=== PATIENT | female | born 1945 | race African-American/Black ===

== ENCOUNTER 2016-12-13 01:53 | Emergency (ER) | payer MEDICARE, MEDICAID ==
[~2016-12-13] VITALS: Ht 157.5 cm; Wt 110.0 kg
[~2016-12-13 01:53] MED LIST: ACET1TAB14 PO; BENA40TA66 PO; BUDE6HFA IH; CYM20 PO; DILT300C35 PO; OMEP20TA80 PO; SIMV20TA6 PO
[2016-12-13] MEDS ORDERED: KETOROLAC 30MG/ML VIAL IV STA (03:39)
[2016-12-13] MEDS ORDERED: SODIUM CHLORIDE 0.9% 1,000 ML IV ONE (03:39)
[2016-12-13 04:02] LABS: BASOPHILS % 1.7 % (0.0-2.0); EOSINOPHILS % 4.7 % (0.0-5.0); HEMATOCRIT. 31.5 % (36.0-48.0); HEMOGLOBIN. 10.2 g/dL (12.0-16.0); LYMPHOCYTES % 22.7 % (20.0-50.0); MEAN CORPUSCULAR HEMOGLOBIN 28.5 pg (28.0-32.0); MEAN CORPUSCULAR HGB CONC 32.3 g/dL (31.0-37.0); MEAN PLATELET VOLUME 7.6 fl (7.4-10.4); MONOCYTES % 7.9 % (2.0-8.0); PLATELET 303 x1000/uL (130-400); RED BLOOD CELL COUNT 3.58 mill/uL (4.2-5.4); RED CELL DISTRIBUTION WIDTH 16.7 % (11.6-14.6); WHITE BLOOD COUNT 6.2 x1000/uL (4.5-11.0)
[2016-12-13 04:10] LABS: INR 1.1; PARTIAL THROMBOPLASTIN TIME 27.6 sec (24.0-34.0); PROTHROMBIN TIME 11.1 sec
[2016-12-13 04:18] LABS: ALANINE AMINOTRANSFERASE 8 IU/L (13-61); ALBUMIN 3.3 g/dL (3.4-5.0); ANION GAP 12; CARBON DIOXIDE 24 mEq/L (21-32); CHLORIDE 110 mEq/L (98-107); INDEX HEMOLYSI 1 (1-3); INDEX ICTERIC 1 (1-4); INDEX LIPEMIC 1 (1-3); NT PRO B-TYPE NATRIURETIC PEP 1590 pg/mL (5-125); TROPONIN I < 0.02 ng/mL (0.00-0.04); UREA NITROGEN BLOOD 14 mg/dL (7-21); eGFR 49 mL/min (>60)
[2016-12-13 06:49] VITALS: BP 117/72
== END 2016-12-13 07:07 | disposition home or self-care (01) ==
LOC: ER 02:48
DX: J44.1 Chronic obstructive pulmonary disease with (acute) exacerbation (principal); Z99.81 Dependence on supplemental oxygen; I11.9 Hypertensive heart disease without heart failure; I50.9 Heart failure, unspecified; M75.101 Unspecified rotator cuff tear or rupture of right shoulder, not specified as traumatic; M79.605 Pain in left leg; M79.604 Pain in right leg; G89.29 Other chronic pain
CPT/HCPCS: 36415; 71010; 73030; 80053; 83880; 84484; 85025; 85610; 85730; 93005; 93970; 96374; 99285; J1885; J7030

== ENCOUNTER 2016-12-19 07:51 | Inpatient (IN) | payer MEDICARE, MEDICAID ==
[~2016-12-19] VITALS: Ht 157.5 cm; Wt 90.7 kg
[2016-12-19] MEDS ORDERED: ASPIRIN 81MG TABLET PO STA (10:37)
[2016-12-19] MEDS ORDERED: MORPHINE SULFATE 4 MG/ML CPJ (NOT FOR IM USE) IV STA (10:37)
[2016-12-19] MEDS ORDERED: ONDANSETRON HCL 4MG/2ML VIAL IV STA (10:37)
[2016-12-19 11:10] LABS: BASOPHILS % 2.2 % (0.0-2.0); EOSINOPHILS % 5.9 % (0.0-5.0); HEMATOCRIT. 34.3 % (36.0-48.0); HEMOGLOBIN. 11.1 g/dL (12.0-16.0); LYMPHOCYTES % 31.6 % (20.0-50.0); MEAN CORPUSCULAR HEMOGLOBIN 29.1 pg (28.0-32.0); MEAN CORPUSCULAR HGB CONC 32.4 g/dL (31.0-37.0); MEAN CORPUSCULAR VOLUME 89.8 fL (81.0-99.0); MEAN PLATELET VOLUME 7.8 fl (7.4-10.4); MONOCYTES % 7.8 % (2.0-8.0); NEUTROPHILS % 52.5 % (40.0-76.0); PLATELET 272 x1000/uL (130-400); RED BLOOD CELL COUNT 3.82 mill/uL (4.2-5.4); RED CELL DISTRIBUTION WIDTH 17.9 % (11.6-14.6); WHITE BLOOD COUNT 4.7 x1000/uL (4.5-11.0)
[2016-12-19 11:20] LABS: INR 1.1; PARTIAL THROMBOPLASTIN TIME 24.7 sec (24.0-34.0)
[2016-12-19 11:29] LABS: ALANINE AMINOTRANSFERASE 11 IU/L (13-61); ALBUMIN 3.3 g/dL (3.4-5.0); ANION GAP 12; CALCIUM 8.7 mg/dL (8.5-10.1); CARBON DIOXIDE 23 mEq/L (21-32); CHLORIDE 110 mEq/L (98-107); INDEX HEMOLYSI 1 (1-3); INDEX ICTERIC 1 (1-4); INDEX LIPEMIC 1 (1-3); NT PRO B-TYPE NATRIURETIC PEP 1276 pg/mL (5-125); TROPONIN I < 0.02 ng/mL (0.00-0.04); UREA NITROGEN BLOOD 21 mg/dL (7-21); eGFR 41 mL/min (>60)
[2016-12-19 17:10] VITALS: BP 102/56
[2016-12-19 17:17] VITALS: BP 102/56
[2016-12-19] MEDS ORDERED: DOCUSATE SODIUM 100MG CAPSULE PO PRN (18:00)
[2016-12-19] MEDS ORDERED: IPRATROPIUM/ALBUTEROL 0.5-3(2.5)MG/3ML NEB INH PRN (18:00)
[2016-12-19] MEDS ORDERED: GUAIFENESIN 200MG/10ML SUGAR FREE UDC PO PRN (18:00)
[2016-12-19] MEDS ORDERED: ACETAMINOPHEN 650MG/20.3ML UDC GT PRN (18:00)
[2016-12-19] MEDS ORDERED: ONDANSETRON HCL 4MG/2ML VIAL IV PRN (18:00)
[2016-12-19] MEDS ORDERED: DIPHENHYDRAMINE 50MG/ML VIAL IV PRN (18:00)
[2016-12-19] MEDS ORDERED: ACETAMINOPHEN 650MG SUPP PR PRN (18:00)
[2016-12-19] MEDS ORDERED: HYDROCODONE/ACETAMINOPHEN 5/325MG TABLET PO PRN (18:00)
[2016-12-19] MEDS ORDERED: MAGNESIUM/ALUMINUM HYDROXIDE/SIMETHICONE 30ML UDC PO PRN (18:00)
[2016-12-19] MEDS ORDERED: NA PHOS,M-B/NA PHOS,DI-BA ENEMA 118ML PR PRN (18:00)
[2016-12-19] MEDS ORDERED: CLONIDINE 0.1MG TABLET PO PRN (18:00)
[2016-12-19 20:00] VITALS: BP 116/52
[2016-12-19] MEDS ORDERED: ENOXAPARIN 40MG/0.4ML SYR SUBCUT SCH (20:00)
[2016-12-19] MEDS: SODIUM CHLORIDE 0.9% INJ 3ML FLUSH IVF SCH (20:12)
[2016-12-20] VITALS: BP 111/65
[2016-12-20 00:17] LABS: CREATINE KINASE 71 IU/L (26-192); INDEX HEMOLYSI 1 (1-3); TROPONIN I < 0.02 ng/mL (0.00-0.04)
[2016-12-20] MEDS ORDERED: ACETAMINOPHEN WITH CODEINE 300/30MG TABLET PO PRN (00:30)
[2016-12-20 04:00] VITALS: BP 124/74
[2016-12-20] MEDS: SODIUM CHLORIDE 0.9% INJ 3ML FLUSH IVF SCH (05:32)
[2016-12-20 05:39] LABS: BASOPHILS % 2.2 % (0.0-2.0); EOSINOPHILS % 7.6 % (0.0-5.0); HEMATOCRIT. 30.3 % (36.0-48.0); HEMOGLOBIN. 9.9 g/dL (12.0-16.0); LYMPHOCYTES % 45.9 % (20.0-50.0); MEAN CORPUSCULAR HGB CONC 32.6 g/dL (31.0-37.0); MONOCYTES % 11.3 % (2.0-8.0); PLATELET 261 x1000/uL (130-400); RED BLOOD CELL COUNT 3.41 mill/uL (4.2-5.4); WHITE BLOOD COUNT 4.4 x1000/uL (4.5-11.0)
[2016-12-20 06:12] LABS: ALANINE AMINOTRANSFERASE 13 IU/L (13-61); ALBUMIN 3.1 g/dL (3.4-5.0); ANION GAP 12; CALCIUM 8.7 mg/dL (8.5-10.1); CARBON DIOXIDE 25 mEq/L (21-32); CHLORIDE 110 mEq/L (98-107); CREATINE KINASE 66 IU/L (26-192); HDL CHOLESTEROL 58 mg/dL (40-59); INDEX HEMOLYSI 1 (1-3); INDEX ICTERIC 1 (1-4); INDEX LIPEMIC 1 (1-3); LDL CHOLESTEROL 66 mg/dL (5-100); TRIGLYCERIDE 82 mg/dL (0-150); TROPONIN I < 0.02 ng/mL (0.00-0.04); UREA NITROGEN BLOOD 21 mg/dL (7-21); eGFR 45 mL/min (>60)
== END 2016-12-20 08:35 | disposition left against medical advice (07) | DRG 392 ==
LOC: ER 09:15 → 7WST 14:58
PROVIDERS: ADMIT Family Medicine; ATTEND Family Medicine
DX: K21.9 Gastro-esophageal reflux disease without esophagitis (principal); I25.10 Atherosclerotic heart disease of native coronary artery without angina pectoris; R07.9 Chest pain, unspecified; I51.7 Cardiomegaly; I11.9 Hypertensive heart disease without heart failure; J44.9 Chronic obstructive pulmonary disease, unspecified; E78.5 Hyperlipidemia, unspecified; I48.91 Unspecified atrial fibrillation; Z96.652 Presence of left artificial knee joint; Z53.21 Procedure and treatment not carried out due to patient leaving prior to being seen by health care provider; I25.2 Old myocardial infarction; Z79.899 Other long term (current) drug therapy
CPT/HCPCS: 36415; 71010; 73502; 73560; 80053; 80061; 82550; 83036; 83880; 84484; 85025; 85610; 85730; 93005; 96374; 96375; 99285; J1200; J1650; J2270; J2405

== ENCOUNTER 2016-12-28 19:36 | Emergency (ER) | payer MEDICARE, MEDICAID ==
[~2016-12-28] VITALS: Ht 160 cm; Wt 100.0 kg
[2016-12-29] MEDS ORDERED: KETOROLAC 60MG/2ML VIAL IM ONE
[2016-12-29 00:33] LABS: HEMATOCRIT. 36.9 % (36.0-48.0); HEMOGLOBIN. 11.9 g/dL (12.0-16.0); LYMPHOCYTES % 32.3 % (20.0-50.0); MEAN CORPUSCULAR HGB CONC 32.3 g/dL (31.0-37.0); MEAN CORPUSCULAR VOLUME 89.8 fL (81.0-99.0); MONOCYTES % 7.6 % (2.0-8.0); NEUTROPHILS % 49.1 % (40.0-76.0); PLATELET 253 x1000/uL (130-400); RED BLOOD CELL COUNT 4.11 mill/uL (4.2-5.4); RED CELL DISTRIBUTION WIDTH 17.9 % (11.6-14.6); WHITE BLOOD COUNT 6.3 x1000/uL (4.5-11.0)
[2016-12-29 00:36] LABS: CHLORIDE 100 mEq/L (98-107); INDEX HEMOLYSI 1 (1-3); INDEX ICTERIC 1 (1-4); INDEX LIPEMIC 1 (1-3)
[2016-12-29 00:40] VITALS: BP 135/78
[2016-12-29 00:45] LABS: ALANINE AMINOTRANSFERASE 14 IU/L (13-61); ALBUMIN 3.8 g/dL (3.4-5.0); ANION GAP 15; CALCIUM 9.3 mg/dL (8.5-10.1); CARBON DIOXIDE 26 mEq/L (21-32); CREATINE KINASE 70 IU/L (26-192); UREA NITROGEN BLOOD 22 mg/dL (7-21); eGFR 45 mL/min (>60)
== END 2016-12-29 00:42 | disposition left against medical advice (07) ==
LOC: ER 19:36
DX: M79.605 Pain in left leg (principal); M79.604 Pain in right leg; I11.9 Hypertensive heart disease without heart failure; I48.91 Unspecified atrial fibrillation; J44.9 Chronic obstructive pulmonary disease, unspecified; E78.00 Pure hypercholesterolemia, unspecified; I25.2 Old myocardial infarction; Z79.1 Long term (current) use of non-steroidal anti-inflammatories (NSAID); Z79.899 Other long term (current) drug therapy; Z96.659 Presence of unspecified artificial knee joint
CPT/HCPCS: 36415; 80053; 82550; 85025; 96372; 99284; J1885

== ENCOUNTER 2017-02-05 17:57 | Emergency (ER) | payer MEDICARE, MEDICAID ==
[~2017-02-05] VITALS: Ht 152.4 cm; Wt 106.0 kg
[2017-02-05 19:50] VITALS: BP 103/80
[2017-02-05] MEDS ORDERED: ONDANSETRON HCL 4MG/2ML VIAL IV STA (20:07)
[2017-02-05] MEDS ORDERED: MORPHINE SULFATE 4 MG/ML CPJ (NOT FOR IM USE) IV STA (20:07)
[2017-02-05 20:26] LABS: BASOPHILS % 2.5 % (0.0-2.0); HEMOGLOBIN. 10.8 g/dL (12.0-16.0); LYMPHOCYTES % 34.8 % (20.0-50.0); MEAN CORPUSCULAR HEMOGLOBIN 29.2 pg (28.0-32.0); MEAN CORPUSCULAR HGB CONC 32.7 g/dL (31.0-37.0); MEAN CORPUSCULAR VOLUME 89.4 fL (81.0-99.0); MEAN PLATELET VOLUME 8.1 fl (7.4-10.4); MONOCYTES % 9.1 % (2.0-8.0); NEUTROPHILS % 52.6 % (40.0-76.0); PLATELET 267 x1000/uL (130-400); RED BLOOD CELL COUNT 3.69 mill/uL (4.2-5.4); RED CELL DISTRIBUTION WIDTH 16.6 % (11.6-14.6)
[2017-02-05 20:30] LABS: CHLORIDE 109 mEq/L (98-107)
[2017-02-05 20:35] LABS: ANION GAP 13; CALCIUM 9.3 mg/dL (8.5-10.1); CARBON DIOXIDE 25 mEq/L (21-32); INDEX HEMOLYSI 1 (1-3); INDEX ICTERIC 1 (1-4); INDEX LIPEMIC 1 (1-3); UREA NITROGEN BLOOD 20 mg/dL (7-21)
[2017-02-05 20:37] LABS: INR 1.1; PARTIAL THROMBOPLASTIN TIME 26.1 sec (24.0-34.0); eGFR > 60 mL/min (>60)
[2017-02-05] MEDS ORDERED: HYDROCODONE/ACETAMINOPHEN 5/325MG TABLET PO ONE (21:00)
== END 2017-02-05 21:00 | disposition left against medical advice (07) ==
LOC: ER 17:59
DX: M25.552 Pain in left hip (principal); J44.9 Chronic obstructive pulmonary disease, unspecified; E78.00 Pure hypercholesterolemia, unspecified; I10 Essential (primary) hypertension; I25.2 Old myocardial infarction; I25.10 Atherosclerotic heart disease of native coronary artery without angina pectoris; Z79.899 Other long term (current) drug therapy
CPT/HCPCS: 36415; 80048; 85025; 85610; 85730; 86850; 86900; 99284

== ENCOUNTER 2017-02-06 12:51 | Emergency (ER) | payer MEDICARE, MEDICAID ==
[~2017-02-06] VITALS: Ht 165.1 cm; Wt 130.0 kg
[2017-02-06] MEDS ORDERED: HYDROCODONE/ACETAMINOPHEN 10/325MG TABLET PO ONE (15:30)
[2017-02-06 16:05] VITALS: BP 111/84
== END 2017-02-06 16:05 | disposition home or self-care (01) ==
LOC: ER 13:08
DX: S73.109A Unspecified sprain of unspecified hip, initial encounter (principal); I10 Essential (primary) hypertension; Z87.891 Personal history of nicotine dependence; Z96.653 Presence of artificial knee joint, bilateral; W11.XXXA Fall on and from ladder, initial encounter; Y93.89 Activity, other specified; Y92.018 Other place in single-family (private) house as the place of occurrence of the external cause
CPT/HCPCS: 99283

== ENCOUNTER 2017-04-14 05:32 | Emergency (ER) | payer MEDICARE, MEDICAID ==
[~2017-04-14] VITALS: Ht 154.9 cm; Wt 106.0 kg
[~2017-04-14 05:32] MED LIST changes: +LORA0.5T2 PO
[2017-04-14] MEDS ORDERED: KETOROLAC 30MG/ML VIAL IV ONE (08:00)
[2017-04-14 11:19] VITALS: BP 153/90
== END 2017-04-14 11:24 | disposition home or self-care (01) ==
LOC: ER 08:14
DX: S83.92XA Sprain of unspecified site of left knee, initial encounter (principal); R07.9 Chest pain, unspecified; J45.909 Unspecified asthma, uncomplicated; I50.9 Heart failure, unspecified; I11.0 Hypertensive heart disease with heart failure; Z96.653 Presence of artificial knee joint, bilateral; X50.0XXA Overexertion from strenuous movement or load, initial encounter; Y93.89 Activity, other specified; Y92.89 Other specified places as the place of occurrence of the external cause; Y99.8 Other external cause status
CPT/HCPCS: 36415; 73562; 84484; 93005; 96372; 99285; J1885

== ENCOUNTER 2017-05-04 05:58 | Emergency (ER) | payer MEDICARE, MEDICAID ==
[~2017-05-04] VITALS: Ht 157.5 cm; Wt 104.0 kg
[2017-05-04] MEDS ORDERED: TRAMADOL 50MG TABLET PO ONE (07:00)
[2017-05-04] MEDS ORDERED: KETOROLAC 60MG/2ML VIAL IM ONE (07:45)
[2017-05-04 08:08] VITALS: BP 163/76
== END 2017-05-04 08:25 | disposition home or self-care (01) ==
LOC: ER 05:58
DX: G89.29 Other chronic pain (principal); M25.562 Pain in left knee; J44.9 Chronic obstructive pulmonary disease, unspecified; I11.0 Hypertensive heart disease with heart failure; I50.9 Heart failure, unspecified; Z86.73 Personal history of transient ischemic attack (TIA), and cerebral infarction without residual deficits; Z96.653 Presence of artificial knee joint, bilateral
CPT/HCPCS: 73562; 96372; 99284; J1885

== ENCOUNTER 2017-05-11 13:25 | Emergency (ER) | payer MEDICARE, MEDICAID ==
[~2017-05-11] VITALS: Ht 157.5 cm; Wt 109.0 kg
[2017-05-11] MEDS ORDERED: KETOROLAC 30MG/ML VIAL IV STA (14:56)
[2017-05-11] MEDS ORDERED: ONDANSETRON HCL 4MG/2ML VIAL IV STA (14:56)
[2017-05-11] MEDS ORDERED: SODIUM CHLORIDE 0.9% 1,000 ML IV ONE (14:56)
[2017-05-11 15:16] LABS: CLARITY URINE CLEAR (CLEAR); COLOR URINE YELLOW (YELLOW); GLUCOSE URINE NEGATIVE (NEGATIVE); KETONES URINE NEGATIVE (NEGATIVE); LEUKOCYTE ESTERASE URINE NEGATIVE (NEGATIVE); NITRITE URINE NEGATIVE (NEGATIVE); OCCULT BLOOD URINE NEGATIVE (NEGATIVE); PROTEIN URINE TRACE (NEGATIVE); SPECIFIC GRAVITY URINE 1.019 (1.005-1.030); UROBILINOGEN URINE 0.2 E.U./dL (0.2-1.0)
[2017-05-11 15:30] VITALS: BP 149/71
[2017-05-11 15:36] LABS: EOSINOPHILS % 2.6 % (0.0-5.0); HEMATOCRIT. 31.8 % (36.0-48.0); HEMOGLOBIN. 10.5 g/dL (12.0-16.0); MEAN CORPUSCULAR HEMOGLOBIN 29.6 pg (28.0-32.0); MEAN CORPUSCULAR VOLUME 89.5 fL (81.0-99.0); MEAN PLATELET VOLUME 7.8 fl (7.4-10.4); MONOCYTES % 7.1 % (2.0-8.0); NEUTROPHILS % 55.3 % (40.0-76.0); PLATELET 279 x1000/uL (130-400); RED BLOOD CELL COUNT 3.55 mill/uL (4.2-5.4); RED CELL DISTRIBUTION WIDTH 18.7 % (11.6-14.6)
[2017-05-11 15:39] LABS: PROTHROMBIN TIME 10.6 sec
[2017-05-11 15:45] LABS: CARBON DIOXIDE 20 mEq/L (21-32); CHLORIDE 115 mEq/L (98-107)
== END 2017-05-11 16:38 | disposition home or self-care (01) ==
LOC: ER 13:25
DX: R11.2 Nausea with vomiting, unspecified (principal); R42 Dizziness and giddiness; I10 Essential (primary) hypertension; J44.9 Chronic obstructive pulmonary disease, unspecified; Z86.73 Personal history of transient ischemic attack (TIA), and cerebral infarction without residual deficits; Z96.659 Presence of unspecified artificial knee joint
CPT/HCPCS: 36415; 80053; 81001; 83690; 85025; 85610; 93005; 96361; 96374; 96375; 99285; J1885; J2405; J7030

== ENCOUNTER 2017-05-19 19:57 | Inpatient (IN) | payer MEDICARE, MEDICAID ==
[~2017-05-19] VITALS: Ht 157.5 cm; Wt 106.6 kg
[~2017-05-19 19:57] MED LIST changes: +OMEP20TA2 PO; -OMEP20TA80 PO
[2017-05-19] MEDS ORDERED: TRAMADOL 50MG TABLET PO ONE (23:00)
[2017-05-19 23:18] LABS: HEMATOCRIT. 31.6 % (36.0-48.0); HEMOGLOBIN. 10.4 g/dL (12.0-16.0); MEAN CORPUSCULAR HEMOGLOBIN 30.1 pg (28.0-32.0); MEAN CORPUSCULAR VOLUME 91.2 fL (81.0-99.0); PLATELET 273 x1000/uL (130-400); RED BLOOD CELL COUNT 3.46 mill/uL (4.2-5.4); RED CELL DISTRIBUTION WIDTH 18.8 % (11.6-14.6)
[2017-05-19 23:24] LABS: PARTIAL THROMBOPLASTIN TIME 24.5 sec (23.4-31.0); PROTHROMBIN TIME 10.4 sec (9.4-11.6)
[2017-05-19 23:34] LABS: PLATELET ESTIMATE NORMAL
[2017-05-20] MEDS ORDERED: ONDANSETRON 4MG ODT PO ONE (00:45)
[2017-05-20] MEDS ORDERED: HYDROCODONE/ACETAMINOPHEN 5/325MG TABLET PO ONE (00:45)
[2017-05-20] MEDS ORDERED: SODIUM CHLORIDE 0.9% 500 ML IV ONE (01:24)
[2017-05-20] MEDS ORDERED: GUAIFENESIN 200MG/10ML SUGAR FREE UDC PO PRN (04:00)
[2017-05-20] MEDS ORDERED: MAGNESIUM/ALUMINUM HYDROXIDE/SIMETHICONE 30ML UDC PO PRN (04:00)
[2017-05-20] MEDS ORDERED: ACETAMINOPHEN 325MG TABLET PO PRN (04:16)
[2017-05-20] MEDS ORDERED: CLONIDINE 0.1MG TABLET PO PRN (04:17)
[2017-05-20] MEDS ORDERED: IPRATROPIUM/ALBUTEROL 0.5-3(2.5)MG/3ML NEB INH PRN (04:22)
[2017-05-20] MEDS ORDERED: AMPICILLIN SOD/SULBACTAM NA 1.5 G in SODIUM CHLORIDE 0.9% 50 ML IV SCH ×2 (05:00→12:00)
[2017-05-20] MEDS: DIPHENHYDRAMINE 50MG/ML VIAL IV PRN ×2 (07:32→23:20)
[2017-05-20] MEDS: DULOXETINE HCL 20MG DR CAPSULE PO SCH (11:05)
[2017-05-20] MEDS: SODIUM CHLORIDE 0.9% INJ 3ML FLUSH IVF SCH ×2 (11:05→21:49)
[2017-05-20] MEDS: DILTIAZEM HCL 300MG CAPSULE SR 24HR PO SCH (11:06)
[2017-05-20] MEDS: HYDROCODONE/ACETAMINOPHEN 5/325MG TABLET PO PRN ×3 (13:43→21:49)
[2017-05-20] MEDS: AMPICILLIN SOD/SULBACTAM NA 3 G in SODIUM CHLORIDE 0.9% 100 ML IV SCH ×2 (17:34→23:28)
[2017-05-20] MEDS ORDERED: VANCOMYCIN 1250MG in DEXTROSE 5% WATER 250ML IV SCH (20:00)
[2017-05-21] MEDS: HYDROCODONE/ACETAMINOPHEN 5/325MG TABLET PO PRN ×2 (03:19→09:47)
[2017-05-21] MEDS: AMPICILLIN SOD/SULBACTAM NA 3 G in SODIUM CHLORIDE 0.9% 100 ML IV SCH ×2 (05:50→11:30)
[2017-05-21] MEDS: SODIUM CHLORIDE 0.9% INJ 3ML FLUSH IVF SCH ×2 (05:51→13:19)
[2017-05-21 08:16] LABS: C REACTIVE PROTEIN QUANT 0.9 mg/L (0.0-3.0)
[2017-05-21] MEDS ORDERED: VANCOMYCIN 500 MG PREMIX 100 ML IV SCH (09:00)
[2017-05-21] MEDS: DILTIAZEM HCL 300MG CAPSULE SR 24HR PO SCH (09:37)
[2017-05-21] MEDS: DULOXETINE HCL 20MG DR CAPSULE PO SCH (09:37)
[2017-05-21] MEDS ORDERED: MAGNESIUM HYDROXIDE 400MG/5ML 30ML UDC PO NR (11:00)
[2017-05-21 12:27] VITALS: BP 122/60
== END 2017-05-21 13:45 | disposition home or self-care (01) | DRG 155 ==
LOC: ER 22:01 → 6EST 05-20 01:10 → EDBEDREQ 05-20 01:14 → ENRESERV 05-20 07:04 → 6EST 05-20 08:20
PROVIDERS: ADMIT Internal Medicine; ATTEND Internal Medicine
DX: K11.20 Sialoadenitis, unspecified (principal); Z68.41 Body mass index [BMI] 40.0-44.9, adult; E44.0 Moderate protein-calorie malnutrition; I11.0 Hypertensive heart disease with heart failure; I50.9 Heart failure, unspecified; E78.5 Hyperlipidemia, unspecified; E78.00 Pure hypercholesterolemia, unspecified; Z96.653 Presence of artificial knee joint, bilateral; E66.9 Obesity, unspecified; Z86.73 Personal history of transient ischemic attack (TIA), and cerebral infarction without residual deficits; Z79.899 Other long term (current) drug therapy; Z90.49 Acquired absence of other specified parts of digestive tract
CPT/HCPCS: 36415; 70540; 76536; 80048; 80076; 85007; 85027; 85610; 85651; 85730; 86140; 96365; 96375; 99285; J0295; J1200; J3370; J7040; J7050; J7060; Q0162

== ENCOUNTER 2017-07-28 13:19 | Emergency (ER) | payer MEDICARE, MEDICAID ==
[~2017-07-28] VITALS: Ht 157.5 cm; Wt 118.0 kg
[2017-07-28 15:28] VITALS: BP 158/77
[2017-07-28] MEDS ORDERED: ACETAMINOPHEN 500MG TABLET PO ONE (16:45)
== END 2017-07-28 17:27 | disposition home or self-care (01) ==
LOC: ER 14:45
DX: M19.90 Unspecified osteoarthritis, unspecified site (principal); M85.60 Other cyst of bone, unspecified site; M79.601 Pain in right arm; R20.0 Anesthesia of skin; I10 Essential (primary) hypertension; Z96.659 Presence of unspecified artificial knee joint
CPT/HCPCS: 73130; 99284

== ENCOUNTER 2017-07-29 22:43 | Emergency (ER) | payer MEDICARE, MEDICAID ==
[~2017-07-29] VITALS: Ht 157.5 cm; Wt 109.0 kg
[2017-07-30] MEDS ORDERED: ACETAMINOPHEN 325MG TABLET PO ONE (01:00)
[2017-07-30 01:45] VITALS: BP 150/66
== END 2017-07-30 02:02 | disposition home or self-care (01) ==
LOC: ER 22:43
DX: M76.32 Iliotibial band syndrome, left leg (principal); I10 Essential (primary) hypertension; Z96.653 Presence of artificial knee joint, bilateral
CPT/HCPCS: 99283

== ENCOUNTER 2017-09-23 17:20 | Emergency (ER) | payer MEDICARE, MEDICAID ==
[~2017-09-23] VITALS: Ht 157.5 cm; Wt 128.0 kg
[2017-09-23] MEDS ORDERED: KETOROLAC 15MG/ML VIAL IM ONE (20:45)
[2017-09-23 21:17] VITALS: BP 172/78
== END 2017-09-23 21:22 | disposition home or self-care (01) ==
LOC: ER 17:39
DX: M67.411 Ganglion, right shoulder (principal); I10 Essential (primary) hypertension; Z98.890 Other specified postprocedural states; Z96.659 Presence of unspecified artificial knee joint
CPT/HCPCS: 96372; 99283; J1885

== ENCOUNTER 2017-09-25 12:53 | Emergency (ER) | payer MEDICARE, MEDICAID ==
[~2017-09-25] VITALS: Ht 157.5 cm; Wt 123.0 kg
[2017-09-25] MEDS ORDERED: KETOROLAC 60MG/2ML VIAL IM ONE (20:45)
[2017-09-25 21:12] VITALS: BP 145/79
== END 2017-09-25 21:13 | disposition home or self-care (01) ==
LOC: ER 14:47
DX: M25.511 Pain in right shoulder (principal); M25.531 Pain in right wrist; M54.9 Dorsalgia, unspecified; I10 Essential (primary) hypertension; J45.909 Unspecified asthma, uncomplicated; Z96.659 Presence of unspecified artificial knee joint
CPT/HCPCS: 99281; J1885

== ENCOUNTER 2017-12-01 08:10 | Inpatient (IN) | payer MEDICARE, MEDICAID ==
[~2017-12-01] VITALS: Ht 152.9 cm; Wt 89.8 kg
[2017-12-01] MEDS ORDERED: TRAMADOL 50MG TABLET PO ONE (08:45)
[2017-12-01 09:09] LABS: CHLORIDE 104 mEq/L (98-107)
[2017-12-01 09:13] LABS: BASOPHILS % 1.3 % (0.0-2.0); EOSINOPHILS % 7.3 % (0.0-5.0); HEMATOCRIT. 33.6 % (36.0-48.0); LYMPHOCYTES % 22.9 % (20.0-50.0); MEAN CORPUSCULAR HEMOGLOBIN 29.7 pg (28.0-32.0); MEAN CORPUSCULAR VOLUME 91.1 fL (81.0-99.0); MEAN PLATELET VOLUME 8.2 fl (7.4-10.4); MONOCYTES % 11.2 % (2.0-8.0); NEUTROPHILS % 57.3 % (40.0-76.0); PLATELET 285 x1000/uL (130-400); RED BLOOD CELL COUNT 3.69 mill/uL (4.2-5.4); RED CELL DISTRIBUTION WIDTH 15.3 % (11.6-14.6)
[2017-12-01] MEDS: LORAZEPAM 2MG/ML CPJ IV ONE ×2 (09:22→10:14)
[2017-12-01 09:46] LABS: CLARITY URINE CLEAR (CLEAR); COLOR URINE YELLOW (YELLOW); KETONES URINE NEGATIVE (NEGATIVE); LEUKOCYTE ESTERASE URINE 1+ (NEGATIVE); NITRITE URINE POSITIVE (NEGATIVE); OCCULT BLOOD URINE 1+ (NEGATIVE); PH URINE 5.5 (4.5-8.0); PROTEIN URINE NEGATIVE (NEGATIVE); SPECIFIC GRAVITY URINE 1.019 (1.005-1.030); UROBILINOGEN URINE 0.2 E.U./dL (0.2-1.0)
[2017-12-01] MEDS ORDERED: LORAZEPAM 2MG/ML CPJ IM STA ×2 (10:48→12:11)
[2017-12-01] MEDS ORDERED: HALOPERIDOL LACTATE 5MG/ML VIAL IM ONE (11:00)
[2017-12-01] MEDS ORDERED: DIPHENHYDRAMINE 50MG/ML VIAL IM STA (12:11)
[2017-12-01] MEDS ORDERED: OLANZAPINE 10 MG/VIAL IM ONE (12:15)
[2017-12-01] MEDS ORDERED: CEFTRIAXONE 1 G PREMIX 50 ML IV ONE (12:45)
[2017-12-01] MEDS ORDERED: STERILE WATER FOR INJECTION 10ML VIAL ONE (12:56)
[2017-12-01 20:00] VITALS: BP 143/74
[2017-12-01 21:00] VITALS: BP 143/74
[2017-12-01] MEDS ORDERED: ENOXAPARIN 40MG/0.4ML SYR SUBCUT SCH (22:30)
[2017-12-01] MEDS ORDERED: MAGNESIUM/ALUMINUM HYDROXIDE/SIMETHICONE 30ML UDC PO PRN (22:30)
[2017-12-01] MEDS ORDERED: LORAZEPAM 2MG/ML CPJ IV PRN (22:30)
[2017-12-01] MEDS ORDERED: ONDANSETRON HCL 4MG/2ML VIAL IV PRN (22:30)
[2017-12-01] MEDS ORDERED: LORAZEPAM 0.5MG TABLET PO PRN (22:45)
[2017-12-02] VITALS: BP 175/72
[2017-12-02] MEDS: SODIUM CHLORIDE 0.9% 1,000 ML IV SCH ×2 (00:09→16:55)
[2017-12-02 04:00] VITALS: BP 180/81
[2017-12-02 08:00] VITALS: BP 123/52
[2017-12-02] MEDS: ENOXAPARIN 30MG/0.3ML SYR SUBCUT SCH ×2 (09:12→20:34)
[2017-12-02] MEDS: DILTIAZEM HCL 300MG CAPSULE SR 24HR PO SCH (11:00)
[2017-12-02 12:49] VITALS: BP 117/50
[2017-12-02] MEDS ORDERED: CEFTRIAXONE 500 MG in DEXTROSE 5% WATER 50 ML IV SCH (13:00)
[2017-12-02] MEDS: ACETAMINOPHEN 325MG TABLET PO PRN (13:03)
[2017-12-02 16:09] VITALS: BP 113/77
[2017-12-02] MEDS: HYDROMORPHONE HCL/PF 2MG/ML CPJ IV PRN (16:57)
[2017-12-02 20:00] VITALS: BP 132/56
[2017-12-03] VITALS: BP 123/63
[2017-12-03 04:00] VITALS: BP 126/69
[2017-12-03] MEDS: HYDROMORPHONE HCL/PF 2MG/ML CPJ IV PRN ×3 (04:00→22:12)
[2017-12-03 06:45] LABS: BASOPHILS % 1.3 % (0.0-2.0); EOSINOPHILS % 9.8 % (0.0-5.0); HEMATOCRIT. 36.4 % (36.0-48.0); HEMOGLOBIN. 11.9 g/dL (12.0-16.0); LYMPHOCYTES % 21.4 % (20.0-50.0); MEAN CORPUSCULAR HEMOGLOBIN 29.8 pg (28.0-32.0); MEAN CORPUSCULAR VOLUME 91.3 fL (81.0-99.0); MEAN PLATELET VOLUME 8.2 fl (7.4-10.4); MONOCYTES % 10.8 % (2.0-8.0); NEUTROPHILS % 56.7 % (40.0-76.0); PLATELET 280 x1000/uL (130-400); RED BLOOD CELL COUNT 3.98 mill/uL (4.2-5.4); RED CELL DISTRIBUTION WIDTH 15.4 % (11.6-14.6)
[2017-12-03] MEDS: SODIUM CHLORIDE 0.9% 1,000 ML IV SCH (06:46)
[2017-12-03] MEDS: DULOXETINE HCL 20MG DR CAPSULE PO SCH (06:47)
[2017-12-03 08:00] VITALS: BP 130/58
[2017-12-03 08:00] LABS: CHLORIDE 109 mEq/L (98-107)
[2017-12-03 08:04] LABS: PHOSPHORUS 3.5 mg/dL (2.5-4.9)
[2017-12-03] MEDS: LORAZEPAM 0.5MG TABLET PO SCH (08:31)
[2017-12-03] MEDS: DILTIAZEM HCL 300MG CAPSULE SR 24HR PO SCH (08:31)
[2017-12-03] MEDS: ACETAMINOPHEN 325MG TABLET PO PRN ×2 (08:31→17:04)
[2017-12-03] MEDS: CEFTRIAXONE 1 G PREMIX 50 ML IV SCH (08:32)
[2017-12-03] MEDS: ENOXAPARIN 30MG/0.3ML SYR SUBCUT SCH ×2 (08:32→20:53)
[2017-12-03 12:00] VITALS: BP 118/58
[2017-12-03 16:00] VITALS: BP 104/63
[2017-12-03 20:00] VITALS: BP 132/57
[2017-12-03] MEDS ORDERED: SODIUM CHLORIDE 0.9% 500 ML IV ONE (22:30)
[2017-12-03] MEDS ORDERED: SODIUM CHLORIDE 0.9% 500 ML IV SCH (22:45)
[2017-12-04] VITALS (8 sets, daily range): BP systolic 89–142; BP diastolic 41–73
[2017-12-04] MEDS: SODIUM CHLORIDE 0.9% 1,000 ML IV SCH ×3 (00:26→22:06)
[2017-12-04] MEDS: ACETAMINOPHEN 325MG TABLET PO PRN (05:53)
[2017-12-04] MEDS: DULOXETINE HCL 20MG DR CAPSULE PO SCH (06:45)
[2017-12-04] MEDS: DILTIAZEM HCL 300MG CAPSULE SR 24HR PO SCH (09:00)
[2017-12-04] MEDS: ENOXAPARIN 30MG/0.3ML SYR SUBCUT SCH ×2 (09:01→22:07)
[2017-12-04] MEDS: LORAZEPAM 0.5MG TABLET PO SCH (09:02)
[2017-12-04] MEDS: HYDROMORPHONE HCL/PF 2MG/ML CPJ IV PRN ×3 (10:53→23:22)
[2017-12-04] MEDS: CEFTRIAXONE 1 G PREMIX 50 ML IV SCH (14:00)
[2017-12-04] MEDS ORDERED: ZOLPIDEM TARTRATE 5MG TABLET PO PRN (21:15)
[2017-12-04] MEDS ORDERED: ACETAMINOPHEN WITH CODEINE 300/60MG TABLET PO PRN (21:15)
[2017-12-05] VITALS: BP 122/72
[2017-12-05] MEDS: SODIUM CHLORIDE 0.9% 1,000 ML IV SCH (06:15)
[2017-12-05] MEDS: DULOXETINE HCL 20MG DR CAPSULE PO SCH (06:27)
[2017-12-05 08:00] VITALS: BP 140/71
[2017-12-05] MEDS: CEFTRIAXONE 1 G PREMIX 50 ML IV SCH (08:20)
[2017-12-05] MEDS: ENOXAPARIN 30MG/0.3ML SYR SUBCUT SCH (08:21)
== END 2017-12-05 09:46 | disposition left against medical advice (07) | DRG 871 ==
LOC: ER 08:25 → 8WST 13:39 → EDBEDREQ 13:41 → CANRESERV 16:40 → ENRESERV 16:40
PROVIDERS: ADMIT Internal Medicine Nephrology; ATTEND Internal Medicine Nephrology
DX: A41.9 Sepsis, unspecified organism (principal); G93.41 Metabolic encephalopathy; I95.9 Hypotension, unspecified; N39.0 Urinary tract infection, site not specified; B96.20 Unspecified Escherichia coli [E. coli] as the cause of diseases classified elsewhere; Z53.21 Procedure and treatment not carried out due to patient leaving prior to being seen by health care provider; W18.39XA Other fall on same level, initial encounter; J45.909 Unspecified asthma, uncomplicated; Z96.651 Presence of right artificial knee joint; I10 Essential (primary) hypertension; Y93.89 Activity, other specified; Y92.89 Other specified places as the place of occurrence of the external cause; Y99.8 Other external cause status; Z79.899 Other long term (current) drug therapy
CPT/HCPCS: 36415; 70450; 71045; 72170; 73030; 73590; 80048; 80053; 81003; 83735; 84100; 84443; 85025; 87077; 87086; 87186; 96365; 96366; 96372; 96375; 97162; 99285; A4216; J0696; J1170; J1200; J1630; J1650; J2060; J3490; J7030; J7060

== ENCOUNTER 2018-01-16 20:50 | Inpatient (IN) | payer MEDICARE, MEDICAID ==
[~2018-01-16] VITALS: Ht 154.9 cm; Wt 112.9 kg
[2018-01-16 20:00] VITALS: BP 112/61
[2018-01-16] MEDS ORDERED: IPRATROPIUM/ALBUTEROL 0.5-3(2.5)MG/3ML NEB HHN PRN (22:00)
[2018-01-16] MEDS ORDERED: GUAIFENESIN-DM 200MG-20MG/10ML UDC PO PRN (22:00)
[2018-01-16] MEDS ORDERED: CLONIDINE 0.1MG TABLET PO PRN (22:00)
[2018-01-16] MEDS ORDERED: DIPHENHYDRAMINE 50MG/ML VIAL IV PRN (22:00)
[2018-01-16] MEDS ORDERED: MORPHINE SULFATE 4 MG/ML CPJ (NOT FOR IM USE) IV PRN (22:00)
[2018-01-16] MEDS: BUDESONIDE 0.5MG/2ML NEB HHN SCH (22:13)
[2018-01-17] MEDS: ATORVASTATIN CALCIUM 40MG TABLET PO SCH ×2 (00:39→21:57)
[2018-01-17] MEDS: IPRATROPIUM/ALBUTEROL 0.5-3(2.5)MG/3ML NEB HHN SCH ×4 (01:43→20:58)
[2018-01-17] MEDS: BUDESONIDE 0.5MG/2ML NEB HHN SCH ×2 (07:43→20:58)
[2018-01-17 08:00] VITALS: BP 142/71
[2018-01-17] MEDS: FAMOTIDINE 20MG TABLET PO SCH ×2 (08:28→17:00)
[2018-01-17] MEDS: DULOXETINE HCL 20MG DR CAPSULE PO SCH (08:28)
[2018-01-17] MEDS: DOCUSATE SODIUM 250MG CAPSULE PO SCH (08:28)
[2018-01-17] MEDS: DILTIAZEM HCL 300MG CAPSULE SR 24HR PO SCH (08:29)
[2018-01-17] MEDS: HYDROCODONE/ACETAMINOPHEN 10/325MG TABLET PO PRN (19:05)
[2018-01-17 20:00] VITALS: BP 107/66
[2018-01-18] MEDS: IPRATROPIUM/ALBUTEROL 0.5-3(2.5)MG/3ML NEB HHN SCH ×4 (01:42→21:28)
[2018-01-18] MEDS: HYDROCODONE/ACETAMINOPHEN 10/325MG TABLET PO PRN ×4 (01:57→21:17)
[2018-01-18] MEDS: BUDESONIDE 0.5MG/2ML NEB HHN SCH ×2 (03:00→21:28)
[2018-01-18 08:11] VITALS: BP 115/72
[2018-01-18] MEDS: DULOXETINE HCL 20MG DR CAPSULE PO SCH (09:48)
[2018-01-18] MEDS: FAMOTIDINE 20MG TABLET PO SCH ×2 (09:48→17:00)
[2018-01-18] MEDS: DILTIAZEM HCL 300MG CAPSULE SR 24HR PO SCH (09:48)
[2018-01-18] MEDS: DOCUSATE SODIUM 250MG CAPSULE PO SCH (09:48)
[2018-01-18 11:04] LABS: VITAMIN B12 SERUM 636 pg/mL (211-911)
[2018-01-18 20:14] VITALS: BP 125/66
[2018-01-18] MEDS: ATORVASTATIN CALCIUM 40MG TABLET PO SCH (21:14)
[2018-01-18] MEDS: BACLOFEN 10MG TABLET PO SCH (21:14)
[2018-01-19] MEDS: HYDROCODONE/ACETAMINOPHEN 10/325MG TABLET PO PRN ×2 (06:57→11:19)
[2018-01-19 08:00] VITALS: BP 108/61
[2018-01-19] MEDS: FAMOTIDINE 20MG TABLET PO SCH ×2 (08:38→17:38)
[2018-01-19] MEDS: DILTIAZEM HCL 300MG CAPSULE SR 24HR PO SCH (08:39)
[2018-01-19] MEDS: DOCUSATE SODIUM 250MG CAPSULE PO SCH (08:39)
[2018-01-19] MEDS: DULOXETINE HCL 20MG DR CAPSULE PO SCH (08:39)
[2018-01-19] MEDS: IPRATROPIUM/ALBUTEROL 0.5-3(2.5)MG/3ML NEB HHN SCH ×3 (10:25→20:53)
[2018-01-19 20:00] VITALS: BP 126/62
[2018-01-19] MEDS: BUDESONIDE 0.5MG/2ML NEB HHN SCH ×2 (20:53→21:55)
[2018-01-19] MEDS: ATORVASTATIN CALCIUM 40MG TABLET PO SCH (21:04)
[2018-01-19] MEDS: BACLOFEN 10MG TABLET PO SCH (21:04)
[2018-01-20] MEDS: IPRATROPIUM/ALBUTEROL 0.5-3(2.5)MG/3ML NEB HHN SCH ×2 (02:03→21:55)
[2018-01-20] MEDS: HYDROCODONE/ACETAMINOPHEN 10/325MG TABLET PO PRN ×3 (07:55→21:43)
[2018-01-20 08:02] VITALS: BP 128/63
[2018-01-20] MEDS: ZINC SULFATE 220 MG ( 50 ) CAPSULE PO SCH (08:56)
[2018-01-20] MEDS: DOCUSATE SODIUM 250MG CAPSULE PO SCH (08:56)
[2018-01-20] MEDS: FAMOTIDINE 20MG TABLET PO SCH ×2 (08:56→17:40)
[2018-01-20] MEDS: MULTIVITAMINS,THER W-MINERALS TABLET PO SCH (08:57)
[2018-01-20] MEDS: ASCORBIC ACID 250 MG TABLET PO SCH ×2 (08:57→17:40)
[2018-01-20] MEDS: DULOXETINE HCL 20MG DR CAPSULE PO SCH (08:58)
[2018-01-20] MEDS: DILTIAZEM HCL 300MG CAPSULE SR 24HR PO SCH (09:00)
[2018-01-20] MEDS ORDERED: LACTULOSE 20G/30ML UDC PO PRN (17:00)
[2018-01-20] MEDS: BISACODYL 5MG TABLET PO PRN (17:40)
[2018-01-20 20:00] VITALS: BP 138/60
[2018-01-20] MEDS: BACLOFEN 10MG TABLET PO SCH (21:44)
[2018-01-20] MEDS: ATORVASTATIN CALCIUM 40MG TABLET PO SCH (21:44)
[2018-01-21] MEDS: IPRATROPIUM/ALBUTEROL 0.5-3(2.5)MG/3ML NEB HHN SCH ×2 (03:20→20:31)
[2018-01-21 07:00] VITALS: BP 126/73
[2018-01-21 08:35] VITALS: BP 154/73
[2018-01-21] MEDS: MULTIVITAMINS,THER W-MINERALS TABLET PO SCH (08:35)
[2018-01-21] MEDS: ZINC SULFATE 220 MG ( 50 ) CAPSULE PO SCH (08:35)
[2018-01-21] MEDS: FAMOTIDINE 20MG TABLET PO SCH ×2 (08:35→17:27)
[2018-01-21] MEDS: DULOXETINE HCL 20MG DR CAPSULE PO SCH (08:35)
[2018-01-21] MEDS: ASCORBIC ACID 250 MG TABLET PO SCH ×2 (08:35→17:27)
[2018-01-21] MEDS: DOCUSATE SODIUM 250MG CAPSULE PO SCH (08:35)
[2018-01-21] MEDS: DILTIAZEM HCL 300MG CAPSULE SR 24HR PO SCH (08:36)
[2018-01-21] MEDS: HYDROCODONE/ACETAMINOPHEN 10/325MG TABLET PO PRN ×3 (09:40→18:50)
[2018-01-21 13:50] VITALS: BP 141/71
[2018-01-21] MEDS: BISACODYL 5MG TABLET PO PRN (18:30)
[2018-01-21 18:43] VITALS: BP 127/68
[2018-01-21] MEDS: BUDESONIDE 0.5MG/2ML NEB HHN SCH (20:32)
[2018-01-21] MEDS: ATORVASTATIN CALCIUM 40MG TABLET PO SCH (21:12)
[2018-01-21] MEDS: BACLOFEN 10MG TABLET PO SCH (21:12)
[2018-01-22] MEDS: IPRATROPIUM/ALBUTEROL 0.5-3(2.5)MG/3ML NEB HHN SCH ×5 (01:47→21:32)
[2018-01-22 06:59] LABS: BASOPHILS % 0.3 % (0.0-2.0); EOSINOPHILS % 8.2 % (0.0-5.0); HEMATOCRIT. 32.1 % (36.0-48.0); HEMOGLOBIN. 10.7 g/dL (12.0-16.0); LYMPHOCYTES % 17.8 % (20.0-50.0); MEAN CORPUSCULAR HEMOGLOBIN 30.5 pg (28.0-32.0); MEAN CORPUSCULAR VOLUME 91.8 fL (81.0-99.0); MEAN PLATELET VOLUME 7.7 fl (7.4-10.4); MONOCYTES % 11.5 % (2.0-8.0); NEUTROPHILS % 62.2 % (40.0-76.0); PLATELET 331 x1000/uL (130-400); RED CELL DISTRIBUTION WIDTH 14.6 % (11.6-14.6)
[2018-01-22 07:00] VITALS: BP 123/69
[2018-01-22 07:50] LABS: CHLORIDE 101 mEq/L (98-107)
[2018-01-22] MEDS: DOCUSATE SODIUM 250MG CAPSULE PO SCH (08:20)
[2018-01-22] MEDS: FAMOTIDINE 20MG TABLET PO SCH ×2 (08:20→17:02)
[2018-01-22] MEDS: ZINC SULFATE 220 MG ( 50 ) CAPSULE PO SCH (08:20)
[2018-01-22] MEDS: MULTIVITAMINS,THER W-MINERALS TABLET PO SCH (08:20)
[2018-01-22] MEDS: ASCORBIC ACID 250 MG TABLET PO SCH ×2 (08:20→17:02)
[2018-01-22] MEDS: DULOXETINE HCL 20MG DR CAPSULE PO SCH (08:20)
[2018-01-22] MEDS: DILTIAZEM HCL 300MG CAPSULE SR 24HR PO SCH (08:21)
[2018-01-22] MEDS: BUDESONIDE 0.5MG/2ML NEB HHN SCH ×3 (09:00→21:32)
[2018-01-22 09:25] VITALS: BP 131/90
[2018-01-22] MEDS: HYDROCODONE/ACETAMINOPHEN 10/325MG TABLET PO PRN ×2 (09:33→17:31)
[2018-01-22 20:00] VITALS: BP 107/74
[2018-01-22] MEDS: ATORVASTATIN CALCIUM 40MG TABLET PO SCH (21:19)
[2018-01-22] MEDS: BACLOFEN 10MG TABLET PO SCH (21:19)
[2018-01-23] MEDS: NA PHOS,M-B/NA PHOS,DI-BA ENEMA 118ML PR PRN ×2 (00:53→18:17)
[2018-01-23] MEDS: IPRATROPIUM/ALBUTEROL 0.5-3(2.5)MG/3ML NEB HHN SCH ×4 (01:30→21:25)
[2018-01-23] MEDS: HYDROCODONE/ACETAMINOPHEN 10/325MG TABLET PO PRN ×2 (06:06→11:43)
[2018-01-23 08:11] VITALS: BP 114/54
[2018-01-23] MEDS: DOCUSATE SODIUM 250MG CAPSULE PO SCH (08:43)
[2018-01-23] MEDS: ASCORBIC ACID 250 MG TABLET PO SCH ×2 (08:43→17:12)
[2018-01-23] MEDS: FAMOTIDINE 20MG TABLET PO SCH ×2 (08:44→17:12)
[2018-01-23] MEDS: DILTIAZEM HCL 300MG CAPSULE SR 24HR PO SCH (08:48)
[2018-01-23] MEDS: DULOXETINE HCL 20MG DR CAPSULE PO SCH (08:49)
[2018-01-23] MEDS: MULTIVITAMINS,THER W-MINERALS TABLET PO SCH (08:50)
[2018-01-23] MEDS: ZINC SULFATE 220 MG ( 50 ) CAPSULE PO SCH (08:50)
[2018-01-23] MEDS: BUDESONIDE 0.5MG/2ML NEB HHN SCH ×2 (10:11→21:25)
[2018-01-23] MEDS ORDERED: BISACODYL 10MG SUPP PR NR (19:15)
[2018-01-23 20:00] VITALS: BP 125/72
[2018-01-23] MEDS: BACLOFEN 10MG TABLET PO SCH (21:38)
[2018-01-23] MEDS: LACTULOSE 20G/30ML UDC PO SCH (21:38)
[2018-01-23] MEDS: ATORVASTATIN CALCIUM 40MG TABLET PO SCH (21:38)
[2018-01-24] MEDS: HYDROCODONE/ACETAMINOPHEN 10/325MG TABLET PO PRN (03:05)
[2018-01-24] MEDS: LACTULOSE 20G/30ML UDC PO SCH (04:10)
[2018-01-24] MEDS: IPRATROPIUM/ALBUTEROL 0.5-3(2.5)MG/3ML NEB HHN SCH (07:46)
[2018-01-24] MEDS: BUDESONIDE 0.5MG/2ML NEB HHN SCH (07:46)
[2018-01-24 08:00] VITALS: BP 148/67
[2018-01-24] MEDS: FAMOTIDINE 20MG TABLET PO SCH (09:09)
[2018-01-24] MEDS: ZINC SULFATE 220 MG ( 50 ) CAPSULE PO SCH (09:09)
[2018-01-24] MEDS: DOCUSATE SODIUM 250MG CAPSULE PO SCH (09:09)
[2018-01-24] MEDS: DULOXETINE HCL 20MG DR CAPSULE PO SCH (09:09)
[2018-01-24] MEDS: MULTIVITAMINS,THER W-MINERALS TABLET PO SCH (09:10)
[2018-01-24] MEDS: ASCORBIC ACID 250 MG TABLET PO SCH (09:10)
[2018-01-24] MEDS: DILTIAZEM HCL 300MG CAPSULE SR 24HR PO SCH (09:11)
[2018-01-24 11:32] VITALS: BP 148/67
== END 2018-01-24 14:08 | DRG 551 ==
PROVIDERS: ADMIT Psychiatry & Neurology Neurology; ATTEND Internal Medicine
DX: M47.12 Other spondylosis with myelopathy, cervical region (principal); G82.50 Quadriplegia, unspecified; G95.89 Other specified diseases of spinal cord; F05 Delirium due to known physiological condition; R13.10 Dysphagia, unspecified; E66.01 Morbid (severe) obesity due to excess calories; G62.9 Polyneuropathy, unspecified; G95.20 Unspecified cord compression; G95.29 Other cord compression; Z68.42 Body mass index [BMI] 45.0-49.9, adult; M48.02 Spinal stenosis, cervical region; D64.9 Anemia, unspecified; J44.9 Chronic obstructive pulmonary disease, unspecified; M06.9 Rheumatoid arthritis, unspecified; R53.81 Other malaise; I10 Essential (primary) hypertension; E78.5 Hyperlipidemia, unspecified; Z96.653 Presence of artificial knee joint, bilateral; G89.4 Chronic pain syndrome; R62.7 Adult failure to thrive; M79.609 Pain in unspecified limb; K59.00 Constipation, unspecified; M19.90 Unspecified osteoarthritis, unspecified site; M81.0 Age-related osteoporosis without current pathological fracture; M54.5 Low back pain; F32.89 Other specified depressive episodes; Z90.49 Acquired absence of other specified parts of digestive tract; Z82.61 Family history of arthritis; Z84.89 Family history of other specified conditions; I69.398 Other sequelae of cerebral infarction; Z79.899 Other long term (current) drug therapy; Z91.19 Patient's noncompliance with other medical treatment and regimen
CPT/HCPCS: 36415; 74018; 80048; 82607; 84443; 85025; 92523; 92610; 94640; 97110; 97116; 97162; 97166; 97530; 97535; A4565; A6261; G0515; J2270; J7620; J7626

== ENCOUNTER 2018-04-12 15:07 | Emergency (ER) | payer MEDICARE, MEDICAID ==
[~2018-04-12] VITALS: Ht 162.6 cm; Wt 104.0 kg
[~2018-04-12 15:07] MED LIST changes: -DILT300C35 PO
[2018-04-12 15:19] VITALS: BP 118/68
== END 2018-04-13 06:19 | disposition left against medical advice (07) ==
LOC: ER 16:31
DX: M25.411 Effusion, right shoulder (principal); M25.511 Pain in right shoulder; E78.00 Pure hypercholesterolemia, unspecified; I25.2 Old myocardial infarction
CPT/HCPCS: 99281